=== PATIENT | male | born 1965 | race Caucasian/White ===

== ENCOUNTER 2017-04-27 16:18 | Emergency (ER) | payer OTHER ==
[~2017-04-27] VITALS: Ht 175.3 cm; Wt 119.7 kg
[~2017-04-27 16:18] MED LIST: BENICAR20 MG; CELEXA20 MG; HTN; NAPROXEN500 MG; NEXIUM40 MG; PROVIGIL200 MG; TOPROL XL50 MG; VYTORIN 10-801 EACH; WELLBUTRIN; WELLBUTRIN SR150 MG
[2017-04-27 16:44] LABS: HEMATOCRIT 42.9 % (38.0-50.0); MCH 30.7 PG (29.0-34.0); MCHC 35.9 G/DL (30.0-36.0); MCV 85.6 FL (86-99); MEAN PLAT.VOLUME 9.4 uM^3 (9.0-12.4); PLATELET COUNT 324 K/uL (156-360); RBC DIS.WIDTH-CV 11.8 % (11.8-14.6); RBC DIS.WIDTH-SD 36.8 % (39-53); RED BLOOD COUNT 5.01 M/uL (4.00-5.50); WHITE BLOOD COUNT 16.6 K/uL (4.1-10.2)
[2017-04-27 16:56] LABS: CHLORIDE 98 mEq/L (99-109); POTASSIUM 3.7 mEq/L (3.7-5.4); SODIUM 132 mEq/L (136-147)
[2017-04-27 16:58] LABS: GLUCOSE 100 mg/dL (70-99)
[2017-04-27 16:59] LABS: ANION GAP 11 MEQ/L (2-14)
[2017-04-27 17:02] LABS: GFR ESTIMATE (CALCULATED) > 59 mL/min/
[2017-04-27 17:03] LABS: UREA NITROGEN (BUN) 13 mg/dL (9-23)
[2017-04-27 17:16] LABS: ADD MIUA? YES; BILIRUBIN NEGATIVE; BLOOD MODERATE; COLOR YELLOW ((YELLOW)); GLUCOSE (STRIP) NEGATIVE; KETONES NEGATIVE; LEUKOCYTES NEGATIVE; NITRITE NEGATIVE; PROTEIN (STRIP) NEGATIVE; SPECIFIC GRAVITY 1.015 (1.000-1.030); UROBILINOGEN 0.2 MG/DL (0.2-1.0)
[2017-04-27 17:36] LABS: EPITHELIAL CELLS RARE /HPF
[2017-04-27 17:37] LABS: CASTS NONE SEEN /LPF; MUCUS 2+ /LPF; RED BLOOD CELLS 20-30 /HPF (0-5); WHITE BLOOD CELLS 0-5 /HPF (0-5)
[2017-04-27 17:38] LABS: BACTERIA NONE SEEN /HPF; UCUL ADDED? NO
[2017-04-27] MEDS ORDERED: ZOFRAN ODT4 MG PO (19:31)
[2017-04-27] MEDS ORDERED: FLOMAX0.4 MG PO (19:31)
[2017-04-27] MEDS ORDERED: ROXICODONE5 MG PO (19:31)
[2017-04-27] MEDS ORDERED: MOTRIN800 MG PO (19:31)
[2017-04-27 20:04] VITALS: BP 147/88
== END 2017-04-27 20:04 | disposition home or self-care (01) ==
LOC: EME 16:18
DX: N20.0 Calculus of kidney (principal); I10 Essential (primary) hypertension; Z87.442 Personal history of urinary calculi
CPT/HCPCS: 74176; 80048; 81003; 85027; 99281; 99285; J1885; J2405